=== PATIENT | male | born 1985 | race Caucasian/White ===

== ENCOUNTER 2022-05-17 06:50 | Emergency (ER) | payer OTHER ==
[~2022-05-17] VITALS: Ht 175.3 cm; Wt 72.6 kg
== END 2022-05-17 10:18 | disposition short-term general hospital (02) ==
LOC: ED 06:50
DX: S92.332A Displaced fracture of third metatarsal bone, left foot, initial encounter for closed fracture (principal); S92.342A Displaced fracture of fourth metatarsal bone, left foot, initial encounter for closed fracture; S92.352A Displaced fracture of fifth metatarsal bone, left foot, initial encounter for closed fracture; S91.205A Unspecified open wound of left lesser toe(s) with damage to nail, initial encounter; X50.9XXA Other and unspecified overexertion or strenuous movements or postures, initial encounter
CPT/HCPCS: 36415; 73630; 80053; 82150; 82553; 83605; 83690; 85025; 86850; 86900; 86901; 87502; 90471; 90714; 96374; 96375; 96376; 99284-25; C9803; G0480; J0690; J1170; J2405; J7030; U0003